=== PATIENT | female | born 1975 | race Asian ===

== ENCOUNTER 2017-12-19 15:55 | Outpatient (CLI) | payer OTHER | END 2017-12-19 15:56 | disposition home or self-care (01) | LOC: BICULT 15:55 | PROVIDERS: ATTEND Obstetrics & Gynecology | DX: N63.20 Unspecified lump in the left breast, unspecified quadrant (principal) ==

== ENCOUNTER 2018-04-16 09:58 | Inpatient (IN) | payer MEDICAID, OTHER, SELFPAY ==
[~2018-04-16 09:58] MED LIST: Dexamethasone 20 MG/5 ML VIAL ONE; Ketorolac Tromethamine 30 MG/ML VIAL ONE; Ondansetron HCl/PF 4 MG/2 ML Vial ONE; PHENYLEPHRINE-NS 100 MCG/ML 10 ML SYRINGE ONE; diphenhydrAMINE 50 MG/ML VIAL ONE
[2018-04-16] MEDS ORDERED: Meperidine HCl/PF 25 MG/ML VIAL IM/IV PRN ×2 (10:24→15:14)
[2018-04-16] MEDS ORDERED: Butorphanol Tartrate 1 MG/ML VIAL SLOW IVP PRN ×2 (10:24→15:17)
[2018-04-16] MEDS ORDERED: Promethazine HCl 25 MG/ML VIAL IM PRN ×4 (10:24→15:18)
[2018-04-16] MEDS ORDERED: Ondansetron HCl/PF 4 MG/2 ML Vial IVP PRN ×5 (10:24→15:18)
[2018-04-16] MEDS: Lactated Ringer's 1,000 ML IV SCH ×2 (10:30→11:51)
[2018-04-16] MEDS ORDERED: CEFAZOLIN/Water 2 GM/20 ML SYRINGE SLOW IVP SCH (10:30)
[2018-04-16] MEDS ORDERED: Bicitra 30 ML UDCUP PO SCH (10:30)
[2018-04-16 10:43] LABS: Hemoglobin 14.9 g/dL (12.0-16.0); Mean Corpuscular HGB CONC 33.5 g/dL (32.0-36.0); Mean Corpuscular Hemoglobin 31.5 pg (27.0-31.0); Mean Corpuscular Volume 94.2 fL (78.0-98.0); Mean Platelet Volume 8.4 fL (7.4-10.4); Platelet Count 175 thou/uL (130-400); RBC Distribution Width 12.4 % (11.5-14.5); Red Blood Cell (RBC) Count 4.72 mill/uL (4.20-5.40); White Blood Cell (WBC) Count 6.2 thou/uL (4.8-10.8)
[2018-04-16 10:44] VITALS: BMI 28.1
[2018-04-16 11:20] LABS: HBSAg Index 0.24 S/CO (0-0.99); Hep B Surf Ag Non-Reactive S/CO (NonReactive)
[2018-04-16 11:53] LABS: Syphilis Antibody Nonreactive (Nonreactive); Syphilis Antibody Index 0.05 S/CO (<1.00 Non-Reactive)
[2018-04-16] MEDS ORDERED: Ketorolac Tromethamine 30 MG/ML VIAL ONE (12:00)
[2018-04-16] MEDS ORDERED: Morphine PF 1 MG/ML SYR ONE (12:00)
[2018-04-16] MEDS ORDERED: Ondansetron HCl/PF 4 MG/2 ML Vial ONE (12:00)
[2018-04-16] MEDS ORDERED: ePHEDrine/0.9% NaCl/PF SYRINGE 50 mg/10 ml ONE (12:00)
[2018-04-16] MEDS ORDERED: PHENYLEPHRINE-NS 100 MCG/ML 10 ML SYRINGE ONE (12:00)
[2018-04-16] MEDS ORDERED: Lidocaine 2% 10 ML INJ ONE (12:00)
[2018-04-16] MEDS ORDERED: Naloxone HCl 0.4 mg/ml Vial IV PRN ×2 (12:01→15:18)
[2018-04-16] MEDS ORDERED: Promethazine HCl 25 MG SUPP PR PRN ×2 (12:01→15:18)
[2018-04-16] MEDS ORDERED: HYDROmorphone 2 MG/ML VIAL SLOW IVP PRN (12:01)
[2018-04-16] MEDS ORDERED: Oxytocin 10 UNITS/ML VIAL ONE (12:01)
[2018-04-16] MEDS ORDERED: Eucerin (Mineral Oil/Petrolatum,White) 30 gm Jar TOP PRN (12:01)
[2018-04-16] MEDS ORDERED: Meperidine HCl/PF 25 MG/ML VIAL SLOW IVP PRN (12:01)
[2018-04-16] MEDS ORDERED: Naloxone HCl 0.4 mg/ml Vial IVP PRN ×3 (12:01→15:18)
[2018-04-16] MEDS ORDERED: diphenhydrAMINE 50 MG/ML VIAL IVP PRN ×2 (12:01→15:18)
[2018-04-16] MEDS ORDERED: Ketorolac Tromethamine 30 MG/ML VIAL IVP PRN ×4 (12:01→15:44)
[2018-04-16] MEDS ORDERED: Bupivacaine 0.75% W/DEXTROSE 8.25% 2 ML AMP ONE (12:05)
[2018-04-16] MEDS ORDERED: Communication Order-Pharmacy FS SCH (12:15)
[2018-04-16] MEDS ORDERED: Ketorolac Tromethamine 30 MG/ML VIAL IVP SCH (12:15)
[2018-04-16] MEDS ORDERED: diphenhydrAMINE 50 MG/ML VIAL ONE (12:27)
--- NOTE | 2018-04-16 13:03 | PDOC.OPDEL ---
OB Operative/Delivery Note Delivery Dr/Surgeon: Lon Assist: Wally Pre-Delivery Diagnosis: scheduled section Procedure/Post Delivery Dx: repeat low transverse CS Weeks gestation: 39 Anesthesia: spinal - Findings A Sex: male Weight: 7 lb 11 oz - 1 min: 8 - 5 min: 9 - Additional Findings/Plan Placenta delivered: manual removal findings: low transverse hysterotomy without extension, normal uterus, normal tubes, normal ovaries Estimated blood loss: 800ml, QBL pending Post delivery plan: routine recovery
[2018-04-16] MEDS ORDERED: Bisacodyl 10 MG SUPP PR PRN (14:35)
[2018-04-16] MEDS ORDERED: Lactated Ringer's 1,000 ML IV SCH (14:35)
[2018-04-16] MEDS ORDERED: Lanolin Ointment 7 GM TUBE TOP PRN (14:35)
[2018-04-16] MEDS ORDERED: NS / Oxytocin 40 units/1000ml 1,000 ML IV SCH (14:35)
[2018-04-16] MEDS ORDERED: diphenhydrAMINE 25 MG CAP PO PRN (14:35)
[2018-04-16] MEDS ORDERED: NS / Oxytocin 40 units/1000ml 1,000 ML ONE (14:36)
[2018-04-16] MEDS ORDERED: NO PO,IM,IV OR SC NARCOTICS FOR 12HR EXCEPT BY ANESTHESIA PO SCH (15:18)
[2018-04-16] MEDS ORDERED: Acetaminophen 1,000 MG in Premix Bag 1 BAG IVPB PRN (15:18)
[2018-04-16] MEDS ORDERED: Ketorolac Tromethamine 60 MG/2 ML VIAL IVP PRN (15:18)
[2018-04-16] MEDS ORDERED: Hydrocerin (Eucerin) Cream 120 gm Jar TOP PRN (15:18)
[2018-04-16] MEDS: Docusate Calcium (SURFAK) 240 MG CAP PO SCH (20:10)
[2018-04-16] MEDS: Simethicone Chewable 80 MG TAB PO PRN (20:10)
[2018-04-16] MEDS: Ibuprofen 800 MG TAB PO SCH (20:49)
[2018-04-17] MEDS ORDERED: Meperidine HCl/PF 25 MG/ML VIAL IM/IV PRN (00:15)
[2018-04-17] MEDS ORDERED: Butorphanol Tartrate 1 MG/ML VIAL SLOW IVP PRN (00:15)
[2018-04-17] MEDS ORDERED: Acetaminophen/Codeine 30-300mg Tablet PO PRN ×2 (00:15)
--- NOTE | 2018-04-17 00:40 | OP ---
DATE OF PROCEDURE: 04/16/2018 PROCEDURE PERFORMED: Repeat low transverse section. SURGEON: Humberto Forrest D.O. PRODUCT SAFETY TECHNICIAN: Caryn Lo D.O. ANESTHESIA: Spinal. COMPLICATIONS: None. PREOPERATIVE DIAGNOSES: 1. A 42-year-old G3, P2 at 39 weeks. 2. Gestational diabetes. 3. Breech position. POSTOPERATIVE DIAGNOSES: 1. A 42-year-old G3, P2 at 39 weeks. 2. Gestational diabetes. 3. Status post section. FINDINGS: 1. Low transverse hysterotomy without extension. 2. Minimal adhesive disease. 3. Normal-appearing uterus, tubes and ovaries bilaterally. 4. Vigorous male , Apgars 8 and 9, weight 7 pounds 11 ounces, to nursery. 5. Surgical sites hemostatic. PROCEDURE IN DETAIL: This patient was taken back to the OR with IV fluids running. Once she was in the OR, spinal anesthesia was obtained and the patient was placed in dorsal supine position with a left lateral tilt. Gongora catheter was placed using sterile technique. SCDs were applied to the lower extremities. Two grams of Ancef were administered and the abdomen was prepped and draped in normal fashion for section. Once the surgeons were scrubbed in, anesthesia was tested and found to be adequate. A Pfannenstiel skin incision was made with the scalpel down through the subcutaneous tissue to the fascia. Once the fascia was reached, it was incised in the midline and extended superolaterally both sharply and bluntly dissected off the rectus abdominis muscles. After the fascia was dissected away from the rectus muscles , the peritoneum was bluntly entered and stretched laterally. An Chris O retractor was placed into the abdominal peritoneal cavity for protection, visualization and retraction of the wound. A bladder flap was created with Metzenbaum scissors and the bladder was dissected away from the planned hysterotomy site. A low transverse hysterotomy was made with the scalpel. Clear amniotic fluid was noted. The infant's buttock was noted at the hysterotomy. With gentle fundal pressure, the buttock and legs spontaneously delivered. The left upper extremity was delivered by internally rotating the forearm across the infant's chest. The contralateral upper extremity spontaneously delivered with gentle rotation and the head was delivered spontaneously with the fundal pressure. The had immediate cry. The cord was doubly clamped and cut. The nose and mouth were suctioned. The infant was wrapped in a warm blanket and taken to the nursery nurses in attendance for delivery. Cord blood was collected. The placenta was delivered. Uterus was exteriorized temporarily, massaged to firm and cleared of clot and debris. The uterus was returned to the abdominal cavity. Normal appearing tubes and ovaries noted. The hysterotomy was then closed in a running locked fashion with Monocryl suture. After the hysterotomy was closed, the hysterotomy and pericolic gutters were irrigated and suctioned dry. Hysterotomy was inspected with no areas of bleeding noted. The fascia and rectus muscles were inspected with no areas of bleeding noted. The rectus fascia was reapproximated with PDS suture from corner to corner. Subcutaneous tissue was irrigated and dried. Any small areas of bleeding were controlled with Bovie cauterization. A series of interrupted plain gut sutures were placed to reapproximate the subcutaneous tissue. The subcuticular layer was closed with 4-0 Monocryl and dressed with Dermabond dressing. The uterus was noted to be firm at the end of the case. The patient was cleaned, dried and taken to recovery room in good condition. THONY
[2018-04-17] MEDS ORDERED: Sodium Chloride 0.9% 10 ML ONE ×2 (04:16→06:20)
[2018-04-17] MEDS: Ibuprofen 800 MG TAB PO SCH ×3 (05:42→22:03)
[2018-04-17 06:15] LABS: Mean Corpuscular HGB CONC 33.4 g/dL (32.0-36.0); Mean Corpuscular Hemoglobin 31.9 pg (27.0-31.0); Mean Corpuscular Volume 95.4 fL (78.0-98.0); Mean Platelet Volume 8.5 fL (7.4-10.4); Platelet Count 154 thou/uL (130-400); RBC Distribution Width 12.4 % (11.5-14.5); Red Blood Cell (RBC) Count 4.08 mill/uL (4.20-5.40); White Blood Cell (WBC) Count 10.1 thou/uL (4.8-10.8)
[2018-04-17] MEDS: Naloxone HCl 0.4 mg/ml Vial IV PRN ×2 (06:22→06:43)
--- NOTE | 2018-04-17 08:21 | PDOC.PP ---
Post Progress Note Post Day #: 1 Subjective: Pain and lochia minimal. Voiding. No concerns this AM. PO intake tolerated: yes Flatus: yes Ambulation: yes Vital Signs (12 hours) Temp Pulse Resp BP 04/17/18 07:22 97.8 F 59 L 20 103/63 04/17/18 04:00 97.9 F 70 16 99/59 L 04/17/18 01:00 98.2 F 61 16 103/60 Weight Weight 154 lb - Physical Examination General: NAD Cardiovascular: RRR Respiratory: non-labored breathing Abdominal: no distention, appropriately TTP Fundus firm & at: at umbilicus Extremities: negative homans (B) Skin: CS incision dry & intact, no rash Neurological: no gross focal deficits Psychiatric: A&Ox3, normal affect Result Diagrams: 04/17/18 05:51 Additional Labs: Post Labs Blood Type B POSITIVE 04/16/18 10:33 Hep Bs Antigen Non-Reactive S/CO (NonReactive) 04/16/18 10:33 (1) delivery delivered Code(s): O82 - ENCOUNTER FOR DELIVERY WITHOUT INDICATION Status: Acute - Assessment/Plan PPD1 VSSAF Continue routine post care. Pt desires to stay until PPD3 after CS.
[2018-04-17] MEDS ORDERED: Adacel (T-DAP) 0.5 ML VIAL IM ONE (09:00)
[2018-04-17] MEDS: Simethicone Chewable 80 MG TAB PO PRN (09:22)
[2018-04-17] MEDS: Docusate Calcium (SURFAK) 240 MG CAP PO SCH ×2 (09:22→22:03)
[2018-04-17] MEDS: Prenatal Vitamin 1 TAB PO SCH (09:22)
--- NOTE | 2018-04-18 04:32 | PDOC.EVN ---
Event Note - Event Note Event Note: CTSP for rash by nursing. Feels well, no c/o. VSS AF. Red raised macular rash in area of abdominal prep and inner thighs. Plan: Benadryl po, local care. Pt. reassured.
[2018-04-18] MEDS ORDERED: diphenhydrAMINE 25 MG CAP PO PRN (05:03)
[2018-04-18] MEDS: Ibuprofen 800 MG TAB PO SCH ×3 (06:49→18:08)
--- NOTE | 2018-04-18 08:04 | PDOC.PP ---
Post Progress Note Post Day #: 2 Subjective: Doing well, no concerns, rash with mild itching, naty diet, ambulating. PO intake tolerated: yes Flatus: yes Ambulation: yes Weight Weight 154 lb - Physical Examination General: NAD Respiratory: non-labored breathing Abdominal: appropriately TTP Fundus firm & at: below umb Skin: CS incision dry & intact Deviation from normal: raised erythematous rash in the pattern of the ioband drape Neurological: no gross focal deficits Psychiatric: A&Ox3, normal affect Result Diagrams: 04/17/18 05:51 Additional Labs: Post Labs Blood Type B POSITIVE 04/16/18 10:33 Hep Bs Antigen Non-Reactive S/CO (NonReactive) 04/16/18 10:33 (1) delivery delivered Code(s): O82 - ENCOUNTER FOR DELIVERY WITHOUT INDICATION Status: Acute - Assessment/Plan POD2. Doing well, local reaction/dermatitis from ioband drape vs. chlorhexidine. Discussed possible iodine allergy and to use in the future with caution. Would like to stay another night for help with the infant.
[2018-04-18] MEDS: Docusate Calcium (SURFAK) 240 MG CAP PO SCH (09:07)
[2018-04-18] MEDS: Prenatal Vitamin 1 TAB PO SCH (09:07)
[2018-04-19] MEDS: Docusate Calcium (SURFAK) 240 MG CAP PO SCH ×2 (06:43→09:25)
[2018-04-19] MEDS: Ibuprofen 800 MG TAB PO SCH ×2 (06:44→09:26)
[2018-04-19 08:06] VITALS: BP 130/77; TEMP 98
[2018-04-19] MEDS: Prenatal Vitamin 1 TAB PO SCH (09:25)
== END 2018-04-19 15:10 | disposition home or self-care (01) | DRG 766 ==
LOC: L&D 09:58 → 3SW 14:45
PROVIDERS: ADMIT Obstetrics & Gynecology; ATTEND Obstetrics & Gynecology
PROC: 10D00Z1 Extraction of Products of Conception, Low, Open Approach (ICD-10-PCS; principal; 2018-04-16)
DX: O34.211 Maternal care for low transverse scar from previous cesarean delivery (principal); O24.429 Gestational diabetes mellitus in childbirth, unspecified control; Z3A.39 39 weeks gestation of pregnancy; Z37.0 Single live birth
CPT/HCPCS: 36415; 51702; 85027; 86780; 86850; 86900; 86901; 87340; A4216; J1100; J1200; J1885; J2274; J2310; J2405; J2590; J3490